=== PATIENT | female | born 1960 | race Caucasian/White ===

== ENCOUNTER 2018-03-04 09:59 | Emergency (ER) | payer MEDICARE, MEDICAID ==
[~2018-03-04 09:59] MED LIST: ACET-1748 PO; ALB17R INH; ALBUTERAL INHALER; AMI25 PO; AZI250 PO; CEP500 PO; CIP500 PO; CLI150 PO; CYC10 PO; DEXL30CA5 PO; DICY10CA62 PO; DILT30TA63 PO; HYD2 PO; LEV500 PO; LOR5 PO; LOR5/325 PO; LOR75 PO; METR-1 PO; MUSCLE RELAXANT; NIC21T TOP; OMEP-153 PO; OMEP-218 PO; OMEP40CA45 PO; ONDA4TAB PO; ONDA4TAB9 PO; OXA600 PO; OXYC-865 PO; OXYC10TA67 PO; OXYC1TAB54 PO; OXYC5TAB65 PO; PAN40 PO; PER PO; POTA10CA61 PO; PRE20 PO; PRO25 PO; PRO25S PR; PROM25S PR; RAN150 PO; RANI-320 PO; ROP1 PO; ROPI1TAB36 PO; SUC1 PO; SUCR1ORA13 PO; SUCR1TAB51 PO; TRA50 PO; VAR1 PO; VER40 PO; [UNRECOGNIZED DRUG - CODE] PO
[2018-03-04] MEDS ORDERED: DIPHTH/TETANUS/ACEL. PERTUSSIS IM ONLY ONE (10:20)
--- NOTE | 2018-03-04 10:20 | ER Report ---
History and Physical Time Seen By MD: 10:05 Hx. of Stated Complaint: PT REPORTS SHE SLIPPED ON HER PAJAMA PANTS AND FELL BACKWARDS, HITTING HEAD ON WOOD KITCHEN TABLE. LAC TO HEAD, DENIES LOC HPI/ROS CHIEF COMPLAINT: Head trauma HISTORY OF PRESENT ILLNESS: 58-year-old comes emergency Department today co mplaining of a mechanical fall striking the back of her head on a countertop resulting in a 2-3 cm laceration no loss of consciousness patient states that she tripped over her pajamas fell backwards striking the back of her head patient states she has a headache no neck pain or discomfort no additional complaints noted REVIEW OF SYSTEMS: Respiratory: No cough, no dyspnea. Cardiovascular: No chest pain, no palpitations. Gastrointestinal: No vomiting, no abdominal pain. Musculoskeletal: No back pain. Remainder of the 14 system rev: Yes Allergies: Coded Allergies: Penicillins (Verified Allergy, Intermediate, HIVES, 03/04/18) codeine (Verified Adverse Reaction, Severe, NAUSEA/VOMITING, 03/04/18) Home Meds Reported Medications Ropinirole Hcl (Requip) 1 Mg Tab, 1 MG PO QHS, 0 Refills 05/17/11 Discontinued Reported Medications Dicyclomine Hcl (Dicyclomine Hcl) 10 Mg Capsule, 20 MG PO QID, 0 Refills 08/26/11 Dexlansoprazole (Dexilant) 30 Mg Gerber., 30 MG PO DAILY, 0 Refills 08/26/11 Tramadol Hcl (Ultram) 50 Mg Tab, 50 MG PO TID PRN, 0 Refills 05/17/11 Discontinued Scripts Oxycodone/Acetaminophen (OXYCODONE/ACETAMINOPHEN 5MG/325 MG) 5 Mg/325 Mg Tab, 1- 2 TAB PO Q6H, #20 TAB Prov:JAYLIN POLO NP 01/26/15 Reviewed Nurses Notes: Yes Old Medical Records Reviewed: Yes Hx Smoking: Yes (1ppd) Smoking Status: Current: Every Day Smoker Exposure to Second Hand Smoke?: No Hx Substance Use Disorder: No Hx Alcohol Use: No Constitutional Vital Sign - Last 24 Hours 03/04/18 10:00 Temp 97.5 Pulse 83 Resp 16 B/P (MAP) 124/69 Pulse Ox 95 O2 Delivery Room Air Physical Exam General Appearance: [The patient is alert, has no immediate need for airway protection and no current signs of toxicity.] [ ] Eyes: Pupils equal and round no injection. Respiratory: Chest is non tender, lungs are clear to auscultation. Cardiac: regular rate and rhythm [ ] Gastrointestinal: Abdomen is soft and non tender, no masses, bowel sounds normal. Musculoskeletal: Neck: Neck is supple and non tender. Extremities have full range of motion and are non tender. Skin: Head scalp examination shows a 4 cm linear clean laceration of the right parietal-occipital region [ ] DIFFERENTIAL DIAGNOSIS: After history and physical exam differential diagnosis was considered for closed head injury laceration intracranial bleed Medical Decision Making ED Course/Re-evaluation ED Course ED clinical course 58 showed female mechanical fall today on her pajaiTwixies for backwards struck her head on a countertop resulting in a 3-3.5 cm linear clean laceration head CT showed no intracranial abnormality wound was closed copiously irrigated with 4 interrupted milad and tolerated well patient be discharged with a primary care follow-up Decision to Disposition Date: Mar 04, 2018 Decision to Disposition Time: 11:19 Depart Departure Latest Vital Signs Vital Signs Date Time Temp Pulse Resp B/P (MAP) Pulse Ox O2 Delivery O2 Flow Rate FiO2 03/04/18 10:00 97.5 83 16 124/69 95 Room Air Impression: Primary Impression: Laceration Condition: Improved Disposition: HOME OR SELF-CARE Referrals: NATALIE FLYNN MD 10 Days GARY ANGLIN MD Mar 04, 2018 10:20
[2018-03-04 11:00] VITALS: BP 107/66
--- NOTE | 2018-03-04 11:05 | RADIOLOGY IMAGING REPORT ---
FACILITY: [facility] - [place] PATIENT NAME: Martine Watt : 1960 MR: [id number] V: [id number] EXAM DATE: ORDERING PHYSICIAN: GARY ANGLIN TECHNOLOGIST: Location: [facility] Patient: Martine Watt : 1960 Visit/Account:[id number] Date of Sevice: 03/04/2018 EXAMINATION: CT Head without intravenous contrast HISTORY: Trauma. TECHNIQUE: Axial images were obtained from the skull base to the vertex without intravenous contrast . Sagittal and coronal reformatted images are also submitted. One of the following dose optimization techniques was utilized in the performance of this exam: Autom ated exposure control; adjustment of the mA and/or kV according to the patient's size; or use of an i terative reconstruction technique. Specific details can be referenced in the facility's radiology C T exam operational policy. COMPARISON: None available. FINDINGS: Brain volume: Normal. Ventricles: Negative. Acute ischemic changes: None. Hemorrhage: None. Masses / edema: None. Knox-white: Negative. White matter: Negative. Vessels: Negative. Extra-axial: Negative. Calvarium / skull base: Negative. Visualized sinuses / orbits: Moderate mucosal thickening in the left maxillary sinus. Mild mucosal t hickening in the ethmoid air cells and left sphenoid sinus. Rightward nasal septal deviation anterior ly. Leftward nasal septal deviation posteriorly. IMPRESSION: No acute intracranial abnormality. Report Dictated By: Bertram Stringer MD at 03/04/2018 10:57 AM Report E-Signed By: Bertram Stringer MD at 03/04/2018 11:01 AM WSN:[id number]
== END 2018-03-04 11:27 | disposition home or self-care (01) ==
LOC: ER 10:29
DX: S01.01XA Laceration without foreign body of scalp, initial encounter (principal); W01.198A Fall on same level from slipping, tripping and stumbling with subsequent striking against other object, initial encounter
CPT/HCPCS: 70450; 90471; 90715; 99284

== ENCOUNTER 2018-03-13 13:30 | Emergency (ER) | payer MEDICARE, MEDICAID ==
[2018-03-13 13:35] VITALS: BP 129/61
--- NOTE | 2018-03-13 13:37 | ER Report ---
History and Physical Time Seen By MD: 13:35 HPI/ROS CHIEF COMPLAINT: Patient here for staple removal. HISTORY OF PRESENT ILLNESS: She is a 58 her old female who presents for staple removal to her scalp. She reports no interval concerns or problems. Allergies: Coded Allergies: Penicillins (Verified Allergy, Intermediate, HIVES, 03/13/18) codeine (Verified Adverse Reaction, Severe, NAUSEA/VOMITING, 03/13/18) Home Meds Reported Medications Ropinirole Hcl (Requip) 1 Mg Tab, 1 MG PO QHS, 0 Refills 05/17/11 Past Medical/Surgical History Noncontributory Hx Smoking: Yes (1ppd) Smoking Status: Current: Every Day Smoker Exposure to Second Hand Smoke?: No Hx Substance Use Disorder: No Hx Alcohol Use: No Constitutional Vital Sign - Last 24 Hours 03/13/18 13:35 Temp 98.4 Pulse 88 Resp 12 B/P (MAP) 129/61 Pulse Ox 94 O2 Delivery Room Air Physical Exam General appearance: Alert no distress. Skin: Scalp wound healing well. Larisa intact Medical Decision Making ED Course/Re-evaluation ED Course Plan will be staple removal. Decision to Disposition Date: Mar 13, 2018 Decision to Disposition Time: 13:42 Depart Departure Latest Vital Signs Vital Signs Date Time Temp Pulse Resp B/P (MAP) Pulse Ox O2 Delivery O2 Flow Rate FiO2 03/13/18 13:35 98.4 88 12 129/61 94 Room Air Impression: Primary Impression: Removal of staple Condition: Improved Disposition: HOME OR SELF-CARE Patient Instructions: Acute Wound Care (ED) MAK LANDA MD Mar 13, 2018 13:37
== END 2018-03-13 13:50 | disposition home or self-care (01) ==
LOC: ER 13:33
DX: S01.01XD Laceration without foreign body of scalp, subsequent encounter (principal)
CPT/HCPCS: 99281

== ENCOUNTER → 2018-05-14 | Outpatient (CLI) | payer MEDICARE ==
[~2018-05-14] MED LIST changes: +ONDA4TAB97 PO; +PANT40TA65 PO
== END ==
LOC: AMB 14:05
PROVIDERS: ATTEND Nurse Practitioner
DX: R10.9 Unspecified abdominal pain (principal); R50.9 Fever, unspecified; R09.02 Hypoxemia
CPT/HCPCS: A0425; A0427

== ENCOUNTER 2018-08-05 18:55 | Emergency (ER) | payer MEDICARE, MEDICAID ==
--- NOTE | 2018-08-05 19:09 | ER Report ---
History and Physical Time Seen By MD: 19:07 Hx. of Stated Complaint: STARTED NOT FEELING WELL 3 WEEKS AGO WITH A COUGH AND SOB. TODAY IT'S GETTING REALLY BAD, CAN'T TAKE A DEEP BREATH, AUDIBLE WEEZING, SHORT SENTANCES HPI/ROS CHIEF COMPLAINT: shortness of breath HISTORY OF PRESENT ILLNESS: This is a 58 year old female. She has not been feeling well for about 3 weeks. Had a sore throat, then a cough. Worsening wheezing. Cant take a deep breath, looses breath with speaking or exertion. Feels hot and cold spells. Not using any medications other than Requip at present. Stopped all meds including inhaled meds. Still smokes. Denies chest pain. Worried about possible pneumonia. Allergies: Coded Allergies: Penicillins (Verified Allergy, Intermediate, HIVES, 08/05/18) codeine (Verified Adverse Reaction, Severe, NAUSEA/VOMITING, 08/05/18) Home Meds Active Scripts Azithromycin (ZITHROMAX) 250 Mg Tablet, 1 TAB PO QDAY, #4 TAB 0 Refills Prov:LUKE CORRIGAN MD 08/05/18 Albuterol Sulfate 0.083% (ALBUTEROL SULFATE 0.083%) 2.5 Mg/3 Ml Vial.neb, 2.5 MG INH Q4H PRN for WHEEZING, #1 BOX 0 Refills Prov:LUKE CORRIGAN MD 08/05/18 Prednisone (PREDNISONE) 20 Mg Tablet, 60 MG PO QDAY for 4 Days, #12 TAB 0 Refills Prov:LUKE CORRIGAN MD 08/05/18 Reported Medications Ropinirole Hcl (Requip) 1 Mg Tab, 1 MG PO QHS, 0 Refills 05/17/11 Discontinued Scripts Ondansetron Hcl (ZOFRAN) 4 Mg Tablet, 4 MG PO Q8H for Nausea, #15 TAB 0 Refills Prov:MAK LANDA MD 05/14/18 Hydrocodone Bit/Acetaminophen (HYDROCODON-ACETAMINOPHEN 5-325) 1 Each Tablet, 1 EACH PO Q4H PRN for PAIN, #12 TAB 0 Refills Prov:MAK LANDA MD 05/14/18 Pantoprazole Sodium (PANTOPRAZOLE SODIUM) 40 Mg Tablet.dr, 40 MG PO QDAY for 30 Days, #30 TAB.SR 0 Refills Prov:MAK LANDA MD 05/14/18 Reviewed Nurses Notes: Yes Hx Smoking: Yes (1ppd) Smoking Status: Current: Every Day Smoker Exposure to Second Hand Smoke?: No Hx Substance Use Disorder: No Hx Alcohol Use: No Constitutional Vital Sign - Last 24 Hours 08/05/18 08/05/18 08/05/18 08/05/18 19:01 19:01 19:10 19:20 Temp 97.6 Pulse 104 93 Resp 28 9 B/P (MAP) 148/85 148/85 (106) Pulse Ox 91 94 90 O2 Delivery Room Air Room Air 08/05/18 08/05/18 08/05/18 08/05/18 19:20 19:25 19:26 19:40 Pulse 88 94 86 86 Resp 22 17 22 14 Pulse Ox 100 95 08/05/18 08/05/18 08/05/18 08/05/18 19:42 19:55 20:00 20:05 Pulse 82 87 B/P (MAP) 139/82 (101) Pulse Ox 95 96 O2 Flow Rate 2.0 08/05/18 08/05/18 08/05/18 08/05/18 20:15 20:15 20:20 20:22 Pulse 91 85 98 Resp 20 20 Pulse Ox 92 100 O2 Delivery Room Air 08/05/18 08/05/18 08/05/18 08/05/18 20:30 20:35 20:50 21:05 Pulse 89 88 91 B/P (MAP) 129/69 (89) Pulse Ox 93 93 92 08/05/18 08/05/18 08/05/18 08/05/18 21:20 21:22 21:25 21:30 Pulse 95 95 93 B/P (MAP) 144/70 (94) Pulse Ox 91 85 84 08/05/18 08/05/18 21:40 21:55 Pulse 86 91 Pulse Ox 95 95 Physical Exam General Appearance: The patient is alert. No acute distress. Eyes: Pupils are equal, round. No pallor, injection or icterus. ENT: Mucous membranes are moist. Normal oral mucosa. Posterior oropharynx has mild erythema, but no exudates or hypertrophy. Normal nasal mucosa. Neck: Supple and non tender. No lymphadenopathy. Respiratory: Lungs with audible wheezing, poor air movement. No rales appreciate d. There are no retractions or accessory muscle use. Cardiovascular: Regular rate and rhythm. No murmurs, gallops or rubs. Normal capillary refill. Gastrointestinal: Abdomen is soft and non tender. Nondistended. Neurological: Alert and oriented x3. No focal neurologic deficits Skin: Warm and dry. DIFFERENTIAL DIAGNOSIS: After history and physical exam, differential diagnosis was considered for shortness of breath including but not limited to pulmonary infectious process, COPD, asthma, pulmonary embolus and congestive heart failure. Medical Decision Making Data Points Result Diagram: 08/05/18190408/05/181904 Laboratory Hematology Test 08/05/18 19:05 08/05/18 19:07 08/05/18 19:37 Red Blood Count 4.23 M/uL (4.17-5.56) Mean Corpuscular Volume 93.3 fL (80.0-96.0) Mean Corpuscular Hemoglobin 32.1 pg (26.0-33.0) Mean Corpuscular Hemoglobin Concent 34.4 g/dL (32.0-36.0) Red Cell Distribution Width 14.7 % (11.5-14.5) Mean Platelet Volume 8.2 fL (7.2-11.1) Neutrophils (%) (Auto) 66.0 % (39.4-72.5) Lymphocytes (%) (Auto) 22.7 % (17.6-49.6) Monocytes (%) (Auto) 8.7 % (4.1-12.4) Eosinophils (%) (Auto) 1.7 % (0.4-6.7) Basophils (%) (Auto) 0.9 % (0.3-1.4) Nucleated RBC Relative Count (auto) 0.1 /100WBC Neutrophils # (Auto) 5.7 K/uL (2.0-7.4) Lymphocytes # (Auto) 2.0 K/uL (1.3-3.6) Monocytes # (Auto) 0.8 K/uL (0.3-1.0) Eosinophils # (Auto) 0.1 K/uL (0.0-0.5) Basophils # (Auto) 0.1 K/uL (0.0-0.1) Nucleated RBC Absolute Count (auto) 0.01 K/uL Sodium Level 137 mmol/L (137-145) Potassium Level 4.0 mmol/L (3.5-5.0) Chloride Level 102 mmol/L (98-107) Carbon Dioxide Level 29 mmol/L (22-31) Blood Urea Nitrogen 15 mg/dl (7-18) Creatinine 0.80 mg/dl (0.52-1.04) Glomerular Filtration Rate Calc > 60.0 Random Glucose 142 mg/dl (75-110) Calcium Level 9.1 mg/dl (8.4-10.2) Total Bilirubin 0.8 mg/dl (0.2-1.3) Aspartate Amino Transf (AST/SGOT) 18 U/L (0-35) Alanine Aminotransferase (ALT/SGPT) 20 U/L (0-56) Alkaline Phosphatase 79 U/L (0-126) Total Protein 6.7 g/dl (6.3-8.2) Albumin 4.0 g/dl (3.5-5.0) Influenza Virus Type A (PCR) Negative (NEGATIVE) Influenza Virus Type B (PCR) Negative (NEGATIVE) Lactate 1.4 mmol/L (0.7-2.1) Chemistry Test 08/05/18 19:05 08/05/18 19:07 08/05/18 19:37 White Blood Count 8.6 k/uL (4.5-11.0) Red Blood Count 4.23 M/uL (4.17-5.56) Hemoglobin 13.6 g/dL (12.0-16.0) Hematocrit 39.4 % (34.0-47.0) Mean Corpuscular Volume 93.3 fL (80.0-96.0) Mean Corpuscular Hemoglobin 32.1 pg (26.0-33.0) Mean Corpuscular Hemoglobin Concent 34.4 g/dL (32.0-36.0) Red Cell Distribution Width 14.7 % (11.5-14.5) Platelet Count 237 K/uL (150-450) Mean Platelet Volume 8.2 fL (7.2-11.1) Neutrophils (%) (Auto) 66.0 % (39.4-72.5) Lymphocytes (%) (Auto) 22.7 % (17.6-49.6) Monocytes (%) (Auto) 8.7 % (4.1-12.4) Eosinophils (%) (Auto) 1.7 % (0.4-6.7) Basophils (%) (Auto) 0.9 % (0.3-1.4) Nucleated RBC Relative Count (auto) 0.1 /100WBC Neutrophils # (Auto) 5.7 K/uL (2.0-7.4) Lymphocytes # (Auto) 2.0 K/uL (1.3-3.6) Monocytes # (Auto) 0.8 K/uL (0.3-1.0) Eosinophils # (Auto) 0.1 K/uL (0.0-0.5) Basophils # (Auto) 0.1 K/uL (0.0-0.1) Nucleated RBC Absolute Count (auto) 0.01 K/uL Glomerular Filtration Rate Calc > 60.0 Calcium Level 9.1 mg/dl (8.4-10.2) Total Bilirubin 0.8 mg/dl (0.2-1.3) Aspartate Amino Transf (AST/SGOT) 18 U/L (0-35) Alanine Aminotransferase (ALT/SGPT) 20 U/L (0-56) Alkaline Phosphatase 79 U/L (0-126) Total Protein 6.7 g/dl (6.3-8.2) Albumin 4.0 g/dl (3.5-5.0) Influenza Virus Type A (PCR) Negative (NEGATIVE) Influenza Virus Type B (PCR) Negative (NEGATIVE) Lactate 1.4 mmol/L (0.7-2.1) EKG/Imaging Imaging Examination: CHEST PA LAT Comparison: 01/31/2014 and earlier. History: short of breath Findings: Cardiac and hilar contour size is normal. Aortic atherosclerosis. New indistinct region of streaky density in the left infrahilar lung. No focal consolidation is otherwise evident 5. No pneumothorax, edema, or effusion. Cholecystectomy clips. Osseous structures are intact. IMPRESSION: New indistinct region of streaky density in the left infrahilar lung. This could be atelectasis although correlation with any evidence of a bronchitis or less likely aspiration is recommended. No definite focal consolidation. Report Dictated By: Neeraj Molina MD at 08/05/2018 7:59 PM ED Course/Re-evaluation Clinical Indication for ER IV: Hydration, IV Access ED Course Patient initially good oxygen, then decreased and needed 2 liters by nasal canula. Oxygen 85% on room air on re-check without oxygen. Labs obtained and unremarkable. DuoNeb given with some improvement. Later given 3 [id number] albuterol treatments. Chest x-ray with linear area on left hilar area, possible atelectasis, but cannot rule out bronchitis or early pneumonia, but no consolidation noted. Solu-medrol 125mg IV also given. Started on Prednisone, Azithromycin, and home oxygen with Albuterol inhaler and nebulizers. Decision to Disposition Date: Aug 05, 2018 Decision to Disposition Time: 21:22 Depart Departure Latest Vital Signs Vital Signs Date Time Temp Pulse Resp B/P (MAP) Pulse Ox O2 Delivery O2 Flow Rate FiO2 08/05/18 21:55 91 95 08/05/18 21:30 144/70 (94) 08/05/18 20:22 20 08/05/18 20:15 Room Air 08/05/18 19:42 2.0 08/05/18 19:01 97.6 Impression: Primary Impression: COPD with exacerbation Additional Impressions: Hypoxia Acute bronchitis Condition: Improved Disposition: HOME OR SELF-CARE New Scripts Azithromycin (ZITHROMAX) 250 Mg Tablet 1 TAB PO QDAY, #4 TAB 0 Refills Prov: LUKE CORRIGAN MD 08/05/18 Albuterol Sulfate 0.083% (ALBUTEROL SULFATE 0.083%) 2.5 Mg/3 Ml Vial.neb 2.5 MG INH Q4H PRN for WHEEZING, #1 BOX 0 Refills Prov: LUKE CORRIGAN MD 08/05/18 Prednisone (PREDNISONE) 20 Mg Tablet 60 MG PO QDAY for 4 Days, #12 TAB 0 Refills Prov: LUKE CORRIGAN MD 08/05/18 Departure Forms: Home Oxygen, Nebulizer RX Durable Medical Equipment- Oxygen: Oxygen Concentrator, Portable Oxygen Gas, Nebulizer Reason for Use/Diagnosis: copd with exacerbation, bronchitis, hypoxia Start Date of the Order: Aug 05, 2018 Dosage or Concentration (if applicable) - LPM: 2 Route of Administration (if applicable): Nasal Cannula Frequency of Use: Continuous Duration Home O2 Required: 6 Duration Units: Weeks Room Air Oxygen Saturation: 85 ER Prescribing Physician's Name: Luke Corrigan NPI Numbers for Local ER MDs: Shekhar [id number] Patient Instructions: Acute Bronchitis (ED), COPD (Chronic Obstructive Pulmonary Disease) (ED) Additional Instructions: Use DuoNeb nebulizer treatments every 4 hours as needed for shortness of breath. Home oxygen at 2 liters by nasal canula continuously. Prednisone 20mg tablets, take 3 tablets once a day for 4 days. Azithromycin 250mg tablets, one daily for 4 days. Make a follow-up with your regular doctor for later this week or early next week for re-evaluation. Problem Qualifiers Additional Impressions: Acute bronchitis Bronchitis organism: unspecified organism Qualified Codes: J20.9 - Acute bronchitis, unspecified LUKE CORRIGAN MD Aug 05, 2018 19:09
[2018-08-05] MEDS ORDERED: ALBUTEROL 2.5 MG/3 ML NEB NEB ONE ×2 (19:10→20:05)
[2018-08-05] MEDS ORDERED: methylPREDNIS SUCC 125 MG/2ML IVP ONE (19:10)
[2018-08-05] MEDS ORDERED: ALBUTEROL/IPRATROPIUM 3 ML NEB NEB ONE ×2 (19:15→21:35)
[2018-08-05 19:41] LABS: PLATELET COUNT, AUTOMATED 237 K/uL (150-450)
--- NOTE | 2018-08-05 20:11 | RADIOLOGY IMAGING REPORT ---
FACILITY: [facility] PATIENT NAME: Martine Watt : 1960 MR: [id number] V: [id number] EXAM DATE: ORDERING PHYSICIAN: JUAN HANSEN TECHNOLOGIST: Location: [facility] Patient: Martine Watt : 1960 Visit/Account:[id number] Date of Sevice: 08/05/2018 Examination: CHEST PA LAT Comparison: 01/31/2014 and earlier. History: short of breath Findings: Cardiac and hilar contour size is normal. Aortic atherosclerosis. New indistinct region of streaky density in the left infrahilar lung. No focal consolidation is other neri evident 5. No pneumothorax, edema, or effusion. Cholecystectomy clips. Osseous structures are intact. IMPRESSION: New indistinct region of streaky density in the left infrahilar lung. This could be atelectasis altho ugh correlation with any evidence of a bronchitis or less likely aspiration is recommended. No defini te focal consolidation. Report Dictated By: Neeraj Molina MD at 08/05/2018 7:59 PM Report E-Signed By: Neeraj Molina MD at 08/05/2018 8:07 PM [id number]
[2018-08-05] MEDS ORDERED: PRED20TA6 PO (21:28)
[2018-08-05] MEDS ORDERED: AZIT-1 PO (21:28)
[2018-08-05] MEDS ORDERED: ALBU2.5V36 INH (21:28)
[2018-08-05 21:30] VITALS: BP 144/70
[2018-08-05] MEDS ORDERED: ALBUTEROL 8 GM INHALER INH ONE (21:35)
[2018-08-05] MEDS ORDERED: predniSONE 20 MG TAB PO ONE (21:35)
[2018-08-05] MEDS ORDERED: AZITHROMYCIN 250 MG TAB PO ONE (21:35)
[2018-08-05] MEDS ORDERED: ONDANSETRON 4 MG ODT TH SL ONE (22:20)
[2018-08-05] MEDS ORDERED: ONDANSETRON 4 MG/2 ML VIAL IVP ONE (22:20)
[2018-08-05] MEDS ORDERED: MECLIZINE HCL 25 MG TAB PO ONE (22:20)
[2018-08-05] MEDS ORDERED: DIAZEPAM 2 MG TAB PO ONE (22:20)
== END 2018-08-05 22:03 | disposition home or self-care (01) ==
LOC: ER 19:15
DX: J44.1 Chronic obstructive pulmonary disease with (acute) exacerbation (principal); R09.02 Hypoxemia; J20.9 Acute bronchitis, unspecified
CPT/HCPCS: 36415; 71046; 83605; 85025; 87040; 87502; 94640; 96374; 99284; J2930; J7512; J7613; J7620; Q0144; 82040; 82247; 82310; 82374; 82435; 82565; 82947; 84075; 84132; 84155; 84295; 84450; 84460; 84520

== ENCOUNTER 2018-08-14 19:07 | Emergency (ER) | payer MEDICARE, MEDICAID ==
[~2018-08-14 19:07] MED LIST changes: +ALBU2.5V36 INH; +AZIT-1 PO; +PRED20TA6 PO
--- NOTE | 2018-08-14 19:25 | ER Report ---
History and Physical Time Seen By MD: 19:23 Hx. of Stated Complaint: feels like she cant breath, chest being squeezed. HPI/ROS CHIEF COMPLAINT: Difficulty breathing, back pain HISTORY OF PRESENT ILLNESS: 58-year-old female with a known history of asthma seen here approximately one week ago, diagnosed with potential pneumonia, placed on Zithromax, prednisone and albuterol. She noted. Back then. She had mild back pain. He did become much worse. It is now spreading around her rib cage to the front. She feels like she is being squeezed like a bear hug. Patient had an extensive workup last week with normal labs, negative d-dimer. Chest x- ray was interpreted as left infrahilar lung streaky infiltrate. REVIEW OF SYSTEMS: Respiratory: As above Cardiovascular: No chest pain, no palpitations. Gastrointestinal: No vomiting, no abdominal pain. Musculoskeletal: As above Allergies: Coded Allergies: Penicillins (Verified Allergy, Intermediate, HIVES, 08/05/18) codeine (Verified Adverse Reaction, Severe, NAUSEA/VOMITING, 08/05/18) Home Meds Active Scripts Methocarbamol (ROBAXIN-750) 750 Mg Tablet, 1 TAB PO TID PRN for muscle spasm relief, #20 Prov:CARLEY SLATER DO 08/14/18 Oxycodone Hcl/Acetaminophen (PERCOCET 5-325 MG TABLET) 1 Each Tablet, 1 EACH PO Q4-6H PRN for PAIN, #12 Prov:CARLEY SLATER DO 08/14/18 Azithromycin (ZITHROMAX) 250 Mg Tablet, 1 TAB PO QDAY, #4 TAB 0 Refills Prov:JUAN HANSEN MD 08/05/18 Albuterol Sulfate 0.083% (ALBUTEROL SULFATE 0.083%) 2.5 Mg/3 Ml Vial.neb, 2.5 MG INH Q4H PRN for WHEEZING, #1 BOX 0 Refills Prov:JUAN HANSEN MD 08/05/18 Prednisone (PREDNISONE) 20 Mg Tablet, 60 MG PO QDAY for 4 Days, #12 TAB 0 Refills Prov:JUAN HANSEN MD 08/05/18 Reported Medications Ropinirole Hcl (Requip) 1 Mg Tab, 1 MG PO QHS, 0 Refills 05/17/11 Reviewed Nurses Notes: Yes Old Medical Records Reviewed: Yes Hx Smoking: Yes (1ppd) Smoking Status: Current: Every Day Smoker Exposure to Second Hand Smoke?: No Hx Substance Use Disorder: No Hx Alcohol Use: No Constitutional Vital Sign - Last 24 Hours 08/14/18 08/14/18 08/14/18 08/14/18 19:11 19:13 19:30 19:37 Temp 97.6 Pulse 119 89 Resp 26 20 B/P (MAP) 154/77 154/77 (102) 140/68 (92) Pulse Ox 90 91 08/14/18 08/14/18 08/14/18 08/14/18 20:00 20:10 20:10 20:30 Pulse 120 Resp 18 B/P (MAP) 125/69 (87) 123/91 (102) Pulse Ox 91 O2 Delivery Room Air 08/14/18 08/14/18 08/14/18 08/14/18 20:37 20:42 21:00 21:00 Pulse 84 89 Resp 17 8 B/P (MAP) 110/66 (81) O2 Flow Rate 2.0 08/14/18 08/14/18 08/14/18 08/14/18 21:30 21:42 22:12 22:17 Pulse 83 82 86 B/P (MAP) 132/92 (105) Pulse Ox 86 94 95 08/14/18 08/14/18 08/14/18 08/14/18 22:47 22:52 23:07 23:16 Pulse 91 84 82 B/P (MAP) 110/64 (79) Pulse Ox 90 96 96 Physical Exam General Appearance: The patient is alert, has no immediate need for airway protection and no current signs of toxicity. Vital signs stable, tachycardia to 120, afebrile, pulse ox 90% on room air HEENT: Pupils equal and round no injection. TMs normal, oropharynx with moderate erythema Respiratory: Chest is non tender, lungs are clear to auscultation. Decreased breath sounds throughout, no appreciable wheezing. Shallow respirations, pain aggravated by deep inspiration, on palpation of the thoracic musculature in the paraspinous region. There is significant discomfort and pain. There is also spasm noted Cardiac: regular rate and rhythm Gastrointestinal: Abdomen is soft and non tender, no masses, bowel sounds normal. Musculoskeletal: Neck: Neck is supple and non tender. No lymphadenopathy, no JVD Extremities have full range of motion and are non tender. No edema, no calf tenderness Skin: No rashes or lesions. DIFFERENTIAL DIAGNOSIS: After history and physical exam differential diagnosis was considered for shortness of breath including but not limited to pulmonary infectious process, COPD, asthma, pulmonary embolus and congestive heart failure. Additionally,back pain including but not limited to muscular pain, herniated disc, spine fracture, intra-abdominal causes and urinary tract infection. Medical Decision Making Data Points Result Diagram: 08/14/18221508/14/182215 Laboratory Hematology Test 08/14/18 21:52 08/14/18 22:16 Urine Color Yellow Urine Clarity Clear Urine pH 6.0 pH (4.8-9.5) Urine Specific [place] 1.026 Urine Protein Negative mg/dL (NEGATIVE) Urine Glucose (UA) Negative mg/dL (NEGATIVE) Urine Ketones Negative mg/dL (NEGATIVE) Urine Blood Negative (NEGATIVE) Urine Nitrite Negative (NEGATIVE) Urine Bilirubin Negative (NEGATIVE) Urine Urobilinogen 1.0 mg/dL (0.2-1.9) Urine Leukocyte Esterase Negative (NEGATIVE) Urine RBC 1 /HPF (0-2/HPF) Urine WBC <1 /HPF (0-5/HPF) Urine Squamous Epithelial Cells Many /LPF (</=FEW) Urine Bacteria Negative /HPF (NONE-FEW) Urine Mucus None /HPF (NONE-FEW) Red Blood Count 4.26 M/uL (4.17-5.56) Mean Corpuscular Volume 93.9 fL (80.0-96.0) Mean Corpuscular Hemoglobin 32.0 pg (26.0-33.0) Mean Corpuscular Hemoglobin Concent 34.1 g/dL (32.0-36.0) Red Cell Distribution Width 14.6 % (11.5-14.5) Mean Platelet Volume 8.3 fL (7.2-11.1) Neutrophils (%) (Auto) 72.6 % (39.4-72.5) Lymphocytes (%) (Auto) 18.9 % (17.6-49.6) Monocytes (%) (Auto) 6.8 % (4.1-12.4) Eosinophils (%) (Auto) 1.2 % (0.4-6.7) Basophils (%) (Auto) 0.5 % (0.3-1.4) Nucleated RBC Relative Count (auto) 0.0 /100WBC Neutrophils # (Auto) 8.2 K/uL (2.0-7.4) Lymphocytes # (Auto) 2.1 K/uL (1.3-3.6) Monocytes # (Auto) 0.8 K/uL (0.3-1.0) Eosinophils # (Auto) 0.1 K/uL (0.0-0.5) Basophils # (Auto) 0.1 K/uL (0.0-0.1) Nucleated RBC Absolute Count (auto) 0.00 K/uL Erythrocyte Sedimentation Rate 6 mm/HOUR (0-30) Sodium Level 134 mmol/L (137-145) Potassium Level 4.0 mmol/L (3.5-5.0) Chloride Level 102 mmol/L (98-107) Carbon Dioxide Level 25 mmol/L (22-31) Blood Urea Nitrogen 9 mg/dl (7-18) Creatinine 0.60 mg/dl (0.52-1.04) Glomerular Filtration Rate Calc > 60.0 Random Glucose 115 mg/dl (75-110) Calcium Level 8.4 mg/dl (8.4-10.2) Total Bilirubin 1.6 mg/dl (0.2-1.3) Aspartate Amino Transf (AST/SGOT) 87 U/L (0-35) Alanine Aminotransferase (ALT/SGPT) 34 U/L (0-56) Alkaline Phosphatase 88 U/L (0-126) Total Protein 6.4 g/dl (6.3-8.2) Albumin 3.8 g/dl (3.5-5.0) Chemistry Test 08/14/18 21:52 08/14/18 22:16 Urine Color Yellow Urine Clarity Clear Urine pH 6.0 pH (4.8-9.5) Urine Specific [place] 1.026 Urine Protein Negative mg/dL (NEGATIVE) Urine Glucose (UA) Negative mg/dL (NEGATIVE) Urine Ketones Negative mg/dL (NEGATIVE) Urine Blood Negative (NEGATIVE) Urine Nitrite Negative (NEGATIVE) Urine Bilirubin Negative (NEGATIVE) Urine Urobilinogen 1.0 mg/dL (0.2-1.9) Urine Leukocyte Esterase Negative (NEGATIVE) Urine RBC 1 /HPF (0-2/HPF) Urine WBC <1 /HPF (0-5/HPF) Urine Squamous Epithelial Cells Many /LPF (</=FEW) Urine Bacteria Negative /HPF (NONE-FEW) Urine Mucus None /HPF (NONE-FEW) White Blood Count 11.3 k/uL (4.5-11.0) Red Blood Count 4.26 M/uL (4.17-5.56) Hemoglobin 13.6 g/dL (12.0-16.0) Hematocrit 40.0 % (34.0-47.0) Mean Corpuscular Volume 93.9 fL (80.0-96.0) Mean Corpuscular Hemoglobin 32.0 pg (26.0-33.0) Mean Corpuscular Hemoglobin Concent 34.1 g/dL (32.0-36.0) Red Cell Distribution Width 14.6 % (11.5-14.5) Platelet Count 227 K/uL (150-450) Mean Platelet Volume 8.3 fL (7.2-11.1) Neutrophils (%) (Auto) 72.6 % (39.4-72.5) Lymphocytes (%) (Auto) 18.9 % (17.6-49.6) Monocytes (%) (Auto) 6.8 % (4.1-12.4) Eosinophils (%) (Auto) 1.2 % (0.4-6.7) Basophils (%) (Auto) 0.5 % (0.3-1.4) Nucleated RBC Relative Count (auto) 0.0 /100WBC Neutrophils # (Auto) 8.2 K/uL (2.0-7.4) Lymphocytes # (Auto) 2.1 K/uL (1.3-3.6) Monocytes # (Auto) 0.8 K/uL (0.3-1.0) Eosinophils # (Auto) 0.1 K/uL (0.0-0.5) Basophils # (Auto) 0.1 K/uL (0.0-0.1) Nucleated RBC Absolute Count (auto) 0.00 K/uL Erythrocyte Sedimentation Rate 6 mm/HOUR (0-30) Glomerular Filtration Rate Calc > 60.0 Calcium Level 8.4 mg/dl (8.4-10.2) Total Bilirubin 1.6 mg/dl (0.2-1.3) Aspartate Amino Transf (AST/SGOT) 87 U/L (0-35) Alanine Aminotransferase (ALT/SGPT) 34 U/L (0-56) Alkaline Phosphatase 88 U/L (0-126) Total Protein 6.4 g/dl (6.3-8.2) Albumin 3.8 g/dl (3.5-5.0) Urinalysis Test 08/14/18 21:52 Urine Color Yellow Urine Clarity Clear Urine pH 6.0 pH (4.8-9.5) Urine Specific [place] 1.026 Urine Protein Negative mg/dL (NEGATIVE) Urine Glucose (UA) Negative mg/dL (NEGATIVE) Urine Ketones Negative mg/dL (NEGATIVE) Urine Blood Negative (NEGATIVE) Urine Nitrite Negative (NEGATIVE) Urine Bilirubin Negative (NEGATIVE) Urine Urobilinogen 1.0 mg/dL (0.2-1.9) Urine Leukocyte Esterase Negative (NEGATIVE) Urine RBC 1 /HPF (0-2/HPF) Urine WBC <1 /HPF (0-5/HPF) Urine Squamous Epithelial Cells Many /LPF (</=FEW) Urine Bacteria Negative /HPF (NONE-FEW) Urine Mucus None /HPF (NONE-FEW) EKG/Imaging EKG Interpretation 12 lead EK Rhythm: normal sinus rhythm with short VA interval [place]: normal QRS: normal ST segments: normal, no evidence of ischemia or dysrhythmia, comparison to previous EKG dated 05/14/18, no significant change noted Imaging X-ray: Two-view chest x-ray was obtained. I viewed the images myself on the PACS system. My interpretation of the images is: No infiltrate, no effusion, normal mediastinum. Michele, comparison to previous film 08/05/18, no significant change The radiologist interpretation had no clinically significant variation from this interpretation. Results: CT scan of the CTA pulmonary angiogram was obtained. The results of the study are CT ANGIOGRAM OF THE CHEST WITH INTRAVENOUS CONTRAST, PE PROTOCOL DATE OF EXAM: 08/14/2018 20:29 COMPARISON: . INDICATION: Severe back pain and chest pain. History of T9 compression fracture. TECHNIQUE: Contrast enhanced chest CT performed during the injection of 75 ml of Isovue-370. Three-dimensional (MIP) reconstructions were performed. FINDINGS: Negative for pulmonary arterial embolus. Right middle lobe opacities likely atelectasis. There is mild dependent atelectasis in the lower lobes. Thyroid: Incompletely imaged thyroid. Thoracic inlet: No thoracic inlet adenopathy. Heart and great vessels: Heart size is normal. Moderate aortic arch atherosclerosis. Mediastinum and yung: No mediastinal or hilar adenopathy. Lungs and pleura: As above. Breast and axilla: Breast tissue is unremarkable by CT. Bones and soft tissues: No acute fracture. Bone density appears diffusely decreased in the thoracic spine. Upper abdomen: Unremarkable. Surgically absent gallbladder. IMPRESSION: 1. Negative for pulmonary arterial embolus. 2. Extensive right middle lobe atelectasis with near complete collapse. The study was read by the radiologist. I viewed the images myself on the PACS system. ED Course/Re-evaluation Clinical Indication for ER IV: Hydration, IV Access ED Course Patient was admitted to an examination room. H&P was done. The differential diagnoses was considered. Patient with chest tightness and difficulty breathing. Diagnostic studies were performed. Her EKG, troponin, d-dimer are negative. Her chest x-ray is unremarkable. The patient's having some chest wall pain and back spasm. She'll be placed on a muscle relaxant, Robaxin, given Lortab for additional pain relief. She is advised to continue ibuprofen 600 mg 3 times daily. She is advised to follow-up with primary care if unimproved in 3-5 days. Decision to Disposition Date: Aug 14, 2018 Decision to Disposition Time: 22:59 Depart Departure Latest Vital Signs Vital Signs Date Time Temp Pulse Resp B/P (MAP) Pulse Ox O2 Delivery O2 Flow Rate FiO2 08/14/18 23:16 110/64 (79) 08/14/18 23:07 82 96 08/14/18 21:00 2.0 08/14/18 20:42 8 08/14/18 20:10 Room Air 08/14/18 19:11 97.6 Impression: Primary Impression: Chest wall pain Additional Impressions: Back pain COPD (chronic obstructive pulmonary disease) Atelectasis of right lung Condition: Improved Disposition: HOME OR SELF-CARE New Scripts Methocarbamol (ROBAXIN-750) 750 Mg Tablet 1 TAB PO TID PRN for muscle spasm relief, #20 Prov: CARLEY SLATER DO 08/14/18 Oxycodone Hcl/Acetaminophen (PERCOCET 5-325 MG TABLET) 1 Each Tablet 1 EACH PO Q4-6H PRN for PAIN, #12 Prov: CARLEY SLATER DO 08/14/18 Patient Instructions: Atelectasis (ED), Back Pain (ED) Additional Instructions: Take ibuprofen 200 mg 3 tablets 3 times a day with food for 3-5 days Apply heating pad to your back area that's affected Use incentive spirometry every 2 hours while awake Follow-up with your primary care physician if unimproved on Friday or Friday next week Problem Qualifiers Additional Impressions: Back pain Back pain location: thoracic back pain Chronicity: acute Back pain laterality: left Qualified Codes: M54.6 - Pain in thoracic spine COPD (chronic obstructive pulmonary disease) COPD type: unspecified COPD Qualified Codes: J44.9 - Chronic obstructive pulmonary disease, unspecified CARLEY SLATER DO Aug 14, 2018 19:25
[2018-08-14] MEDS ORDERED: ALBUTEROL/IPRATROPIUM 3 ML NEB NEB ONE (19:30)
[2018-08-14] MEDS ORDERED: ONDANSETRON 4 MG/2 ML VIAL IVP ONE (20:30)
[2018-08-14] MEDS ORDERED: NS(*) 0.9% 1000 ML BAG 1,000 ML IV ONE (20:30)
[2018-08-14] MEDS ORDERED: HYDROMORPHONE HCL 1 MG/ML SYRINGE IVP ONE (20:30)
--- NOTE | 2018-08-14 20:36 | RADIOLOGY IMAGING REPORT ---
FACILITY: [facility] - [place] PATIENT NAME: Martine Watt : 1960 MR: [id number] V: [id number] EXAM DATE: ORDERING PHYSICIAN: CARLEY SLATER TECHNOLOGIST: Location: [facility] [place] Patient: Martine Watt : 1960 Visit/Account:[id number] Date of Sevice: 08/14/2018 EXAMINATION: Chest radiographs 2 views HISTORY: Dyspnea. Chest tightness. Back pain. COMPARISON: 08/05/2018. FINDINGS: PA and lateral views of the chest are submitted. Lines/tubes: Surgical clips in the right upper quadrant of the abdomen. Lungs/pleura: There is anterior lung base opacity which is seen on the lateral view which may repres ent mild atelectasis or an infiltrate. No pleural effusion. No evidence of pneumothorax. Pulmonary vascularity is within normal limits. Heart: Normal heart size. Mediastinum: Calcified plaque at the aortic arch. Bony structures/body wall: Negative. IMPRESSION: Small region of opacity at one or both of the anterior lung bases seen on the lateral view which may represent mild atelectasis or an infiltrate. Report Dictated By: Elijah Belle MD at 08/14/2018 8:27 PM Report E-Signed By: Elijah Belle MD at 08/14/2018 8:33 PM WSN:[email or web address]
--- NOTE | 2018-08-14 20:41 | EKG ---
FACILITY: [facility] - [place] PATIENT NAME: DANA MONTEIRO : [id number] MR: [id number] V: [id number] EXAM DATE: ORDERING PHYSICIAN: CARLEY SLATER TECHNOLOGIST: DIANNA Test Reason : PAIN Blood Pressure : / mmHG Vent. Rate : 089 BPM Atrial Rate : 089 BPM P-R Int : 088 ms QRS Dur : 080 ms QT Int : 362 ms P-R-T Axes : 071 067 059 degrees QTc Int : 440 ms Sinus rhythm with short IN Otherwise normal ECG When compared with ECG of 14-MAY-2018 14:35, IN interval has decreased Confirmed by TREY PIERS ([id number]) on 08/14/2018 9:01:10 PM Referred By: NOHEMY Confirmed By:TREY PIRES
[2018-08-14] MEDS ORDERED: NS(*) 0.9% 50 ML BAG 50 ML ONE (21:12)
[2018-08-14] MEDS ORDERED: IOPAMIDOL 76% 150 ML INFUS BTL 150 ML ONE (21:12)
--- NOTE | 2018-08-14 22:07 | RADIOLOGY IMAGING REPORT ---
FACILITY: [facility] - [place] PATIENT NAME: Martine Watt : 1960 MR: [id number] V: [id number] EXAM DATE: ORDERING PHYSICIAN: CARLEY SLATER TECHNOLOGIST: Location: [facility] Patient: Martine Watt : 1960 Visit/Account:[id number] Date of Sevice: 08/14/2018 CT ANGIOGRAM OF THE CHEST WITH INTRAVENOUS CONTRAST, PE PROTOCOL DATE OF EXAM: 08/14/2018 20:29 COMPARISON: . INDICATION: Severe back pain and chest pain. History of T9 compression fracture. TECHNIQUE: Contrast enhanced chest CT performed during the injection of 75 ml of Isovue-370. Three-d imensional (MIP) reconstructions were performed. FINDINGS: Negative for pulmonary arterial embolus. Right middle lobe opacities likely atelectasis. There is mil d dependent atelectasis in the lower lobes. Thyroid: Incompletely imaged thyroid. Thoracic inlet: No thoracic inlet adenopathy. Heart and great vessels: Heart size is normal. Moderate aortic arch atherosclerosis. Mediastinum and yung: No mediastinal or hilar adenopathy. Lungs and pleura: As above. Breast and axilla: Breast tissue is unremarkable by CT. Bones and soft tissues: No acute fracture. Bone density appears diffusely decreased in the thoracic spine. Upper abdomen: Unremarkable. Surgically absent gallbladder. IMPRESSION: 1. Negative for pulmonary arterial embolus. 2. Extensive right middle lobe atelectasis with near complete collapse. One of the following dose optimization techniques was utilized in the performance of this exam: Autom ated exposure control; adjustment of the mA and/or kV according to the patient's size; or use of an i terative reconstruction technique. Specific details can be referenced in the facility's radiology C T exam operational policy. Report Dictated By: Nancy Beck MD at 08/14/2018 9:45 PM Report E-Signed By: Nancy Beck MD at 08/14/2018 10:04 PM WSN:[id number]
[2018-08-14] MEDS ORDERED: KETOROLAC 30 MG/ML VIAL IVP ONE (22:15)
[2018-08-14 22:34] LABS: PLATELET COUNT, AUTOMATED 227 K/uL (150-450)
[2018-08-14] MEDS ORDERED: METH-543 PO (23:01)
[2018-08-14] MEDS ORDERED: OXYC-865 PO (23:01)
[2018-08-14] MEDS ORDERED: oxyCODONE/ACETAMIN 5/325MG TH 2 TAB/BOTTLE PO ONE (23:05)
[2018-08-14 23:16] VITALS: BP 110/64
== END 2018-08-14 23:41 | disposition home or self-care (01) ==
LOC: ER 19:26
DX: R07.89 Other chest pain (principal); M54.6 Pain in thoracic spine; J44.9 Chronic obstructive pulmonary disease, unspecified; J98.11 Atelectasis
CPT/HCPCS: 36415; 71046; 71275; 81001; 85025; 85651; 93005; 94640; 96361; 96374; 96375; 99284; A9270; J1170; J1885; J2405; J7030; J7050; J7620; Q9967; 82040; 82247; 82310; 82374; 82435; 82565; 82947; 84075; 84132; 84155; 84295; 84450; 84460; 84520

== ENCOUNTER 2018-08-19 02:42 | Emergency (ER) | payer MEDICAID, MEDICARE ==
[~2018-08-19 02:42] MED LIST changes: +METH-543 PO
--- NOTE | 2018-08-19 02:53 | ER Report ---
History and Physical Time Seen By : 02:53 Hx. of Stated Complaint: can't breathe, progressively getting worse throughout the day. using o2 at home. doesn't have a portable yet and came in without o2 HPI/ROS CHIEF COMPLAINT: Difficulty breathing. HISTORY OF PRESENT ILLNESS: This is a 58year old female. I saw her a few weeks ago for trouble breathing, and gave her a Prednisone burst and albuterol nebulizer vials to use at home. She was also started on Azithromycin for some possible early pneumonia based on some streakiness in her chest x-ray. Started her on oxygen for hypoxia. She has a home concentrator, but says that insurance does not cover portable oxygen for her. She arrives without oxygen on, but saturation is 89%. She said that the steroid may have helped a little, but still trouble. Has been using the nebulizer once or twice a day. Has some other inhalers at home, but does not know the names of them. She was seen last week for feeling pain with breathing, saying it was a tightness. CT scan done and showed some atelectasis. Given some pain medicine and muscle relaxer, as well as an incentive spirometer. She says these have not helped and the pain medicine only makes her sick. Trouble breahing is a tight feeling and continues coughing. Has not yet followed up with primary care, says she has an appointment tomorrow. No nausea or vomiting. No back pain. She has had a little bit of increased sw elling in both ankles recently. Allergies: Coded Allergies: Penicillins (Verified Allergy, Intermediate, HIVES, 08/19/18) codeine (Verified Adverse Reaction, Severe, NAUSEA/VOMITING, 08/19/18) Home Meds Active Scripts Albuterol Sulfate 0.083% (ALBUTEROL SULFATE 0.083%) 2.5 Mg/3 Ml Vial.neb, 2.5 MG INH Q6H PRN for SHORTNESS OF BREATH, #1 BOX 0 Refills Prov:JUAN HANSEN MD 08/19/18 Ipratropium/Albuterol Sulfate (IPRAT-ALBUT 0.5-3(2.5) MG/3 ML) 3 Ml Ampul.neb, 3 ML IH Q6H, #1 BOX 0 Refills Prov:JUAN HANSEN MD 08/19/18 Prednisone (PREDNISONE) 20 Mg Tablet, 20 MG PO DIRECTED, #26 TAB 0 Refills Take 3 tablets once a day for 4 days, then take 2 tablets once a day for 4 days, then take 1 tablet once a day for 4 days, then take 1/2 tablet once a day for 4 days, then stop. Prov:JUAN HANSEN MD 08/19/18 Methocarbamol (ROBAXIN-750) 750 Mg Tablet, 1 TAB PO TID PRN for muscle spasm relief, #20 Prov:NOHEMYCARLEY Rodriguez DO 08/14/18 Oxycodone Hcl/Acetaminophen (PERCOCET 5-325 MG TABLET) 1 Each Tablet, 1 EACH PO Q4-6H PRN for PAIN, #12 Prov:CARLEY PUENTE DO 08/14/18 Azithromycin (ZITHROMAX) 250 Mg Tablet, 1 TAB PO QDAY, #4 TAB 0 Refills Prov:JUAN HANSEN MD 08/05/18 Albuterol Sulfate 0.083% (ALBUTEROL SULFATE 0.083%) 2.5 Mg/3 Ml Vial.neb, 2.5 MG INH Q4H PRN for WHEEZING, #1 BOX 0 Refills Prov:JUAN HANSEN MD 08/05/18 Prednisone (PREDNISONE) 20 Mg Tablet, 60 MG PO QDAY for 4 Days, #12 TAB 0 Refills Prov:JUAN HANSEN MD 08/05/18 Reported Medications Ropinirole Hcl (Requip) 1 Mg Tab, 1 MG PO QHS, 0 Refills 05/17/11 Reviewed Nurses Notes: Yes Hx Smoking: Yes (1ppd) Smoking Status: Current: Every Day Smoker Exposure to Second Hand Smoke?: No Hx Substance Use Disorder: No Hx Alcohol Use: No Constitutional Vital Sign - Last 24 Hours 08/19/18 08/19/18 08/19/18 08/19/18 02:42 02:46 02:47 02:57 Temp 97.9 Pulse ??? 94 86 Resp 26 20 B/P (MAP) 144/85 144/85 (104) Pulse Ox 89 93 O2 Delivery Room Air 08/19/18 08/19/18 08/19/18 08/19/18 03:12 03:20 03:20 03:26 Pulse 88 80 80 Resp 16 20 22 Pulse Ox 92 90 O2 Delivery Room Air 08/19/18 08/19/18 08/19/18 08/19/18 03:27 03:42 03:57 04:00 Pulse 78 ??? 80 Resp 18 29 B/P (MAP) 109/76 (87) Pulse Ox 98 08/19/18 08/19/18 08/19/18 08/19/18 04:12 04:27 04:30 04:35 Pulse 81 88 82 Resp 23 16 23 B/P (MAP) 114/63 (80) Pulse Ox 87 89 89 08/19/18 08/19/18 08/19/18 04:50 05:00 05:05 Pulse 84 92 Resp 12 19 B/P (MAP) 133/75 (94) Pulse Ox 89 90 Physical Exam General Appearance: The patient is alert. No acute distress. Eyes: Pupils are equal, round. No pallor, injection or icterus. ENT: Mucous membranes are moist. Normal oral mucosa. Posterior oropharynx is normal. Neck: Supple and non tender. Respiratory: Lungs diminished throughout, with expiratory wheezing, no rales or rhonchi noted. There are no retractions or accessory muscle use. Cardiovascular: Regular rate and rhythm. No murmurs, gallops or rubs. Normal cap illary refill. Has trace edema bilateral ankles. Gastrointestinal: Abdomen is soft and non tender. Nondistended. Normal active bowel sounds. Neurological: Alert and oriented x3. No focal neurologic deficits Skin: Warm and dry. No rashes. Has multiple track trevino (known meth use). Musculoskeletal: Extremities are nontender. Has discomfort difusely in back and chest wall. DIFFERENTIAL DIAGNOSIS: After history and physical exam, differential diagnosis was considered for patient with ongoing problems with chest tightness, trouble breathing, although it seems like related to her COPD, and appears to be not using her breathing medicines as much as she could. She does note that when she does use the albuterol nebulizer does feel like it opens her breathing better. Medical Decision Making Data Points Result Diagram: 08/19/18 0412 08/19/18 0412 Laboratory Hematology Test 08/19/18 04:12 Red Blood Count 4.39 M/uL (4.17-5.56) Mean Corpuscular Volume 93.7 fL (80.0-96.0) Mean Corpuscular Hemoglobin 31.8 pg (26.0-33.0) Mean Corpuscular Hemoglobin Concent 33.9 g/dL (32.0-36.0) Red Cell Distribution Width 14.7 % (11.5-14.5) Mean Platelet Volume 8.3 fL (7.2-11.1) Neutrophils (%) (Auto) 60.9 % (39.4-72.5) Lymphocytes (%) (Auto) 29.1 % (17.6-49.6) Monocytes (%) (Auto) 7.9 % (4.1-12.4) Eosinophils (%) (Auto) 1.6 % (0.4-6.7) Basophils (%) (Auto) 0.5 % (0.3-1.4) Nucleated RBC Relative Count (auto) 0.1 /100WBC Neutrophils # (Auto) 5.5 K/uL (2.0-7.4) Lymphocytes # (Auto) 2.6 K/uL (1.3-3.6) Monocytes # (Auto) 0.7 K/uL (0.3-1.0) Eosinophils # (Auto) 0.1 K/uL (0.0-0.5) Basophils # (Auto) 0.0 K/uL (0.0-0.1) Nucleated RBC Absolute Count (auto) 0.01 K/uL Sodium Level 135 mmol/L (137-145) Potassium Level 3.8 mmol/L (3.5-5.0) Chloride Level 100 mmol/L (98-107) Carbon Dioxide Level 29 mmol/L (22-31) Blood Urea Nitrogen 9 mg/dl (7-18) Creatinine 0.60 mg/dl (0.52-1.04) Glomerular Filtration Rate Calc > 60.0 Random Glucose 134 mg/dl (75-110) Calcium Level 9.1 mg/dl (8.4-10.2) Total Bilirubin 0.7 mg/dl (0.2-1.3) Aspartate Amino Transf (AST/SGOT) 20 U/L (0-35) Alanine Aminotransferase (ALT/SGPT) 31 U/L (0-56) Alkaline Phosphatase 93 U/L (0-126) Total Protein 6.6 g/dl (6.3-8.2) Albumin 4.0 g/dl (3.5-5.0) Chemistry Test 08/19/18 04:12 White Blood Count 9.0 k/uL (4.5-11.0) Red Blood Count 4.39 M/uL (4.17-5.56) Hemoglobin 13.9 g/dL (12.0-16.0) Hematocrit 41.1 % (34.0-47.0) Mean Corpuscular Volume 93.7 fL (80.0-96.0) Mean Corpuscular Hemoglobin 31.8 pg (26.0-33.0) Mean Corpuscular Hemoglobin Concent 33.9 g/dL (32.0-36.0) Red Cell Distribution Width 14.7 % (11.5-14.5) Platelet Count 249 K/uL (150-450) Mean Platelet Volume 8.3 fL (7.2-11.1) Neutrophils (%) (Auto) 60.9 % (39.4-72.5) Lymphocytes (%) (Auto) 29.1 % (17.6-49.6) Monocytes (%) (Auto) 7.9 % (4.1-12.4) Eosinophils (%) (Auto) 1.6 % (0.4-6.7) Basophils (%) (Auto) 0.5 % (0.3-1.4) Nucleated RBC Relative Count (auto) 0.1 /100WBC Neutrophils # (Auto) 5.5 K/uL (2.0-7.4) Lymphocytes # (Auto) 2.6 K/uL (1.3-3.6) Monocytes # (Auto) 0.7 K/uL (0.3-1.0) Eosinophils # (Auto) 0.1 K/uL (0.0-0.5) Basophils # (Auto) 0.0 K/uL (0.0-0.1) Nucleated RBC Absolute Count (auto) 0.01 K/uL Glomerular Filtration Rate Calc > 60.0 Calcium Level 9.1 mg/dl (8.4-10.2) Total Bilirubin 0.7 mg/dl (0.2-1.3) Aspartate Amino Transf (AST/SGOT) 20 U/L (0-35) Alanine Aminotransferase (ALT/SGPT) 31 U/L (0-56) Alkaline Phosphatase 93 U/L (0-126) Total Protein 6.6 g/dl (6.3-8.2) Albumin 4.0 g/dl (3.5-5.0) EKG/Imaging Imaging TWO VIEW CHEST 08/19/2018 3:17 AM. INDICATION: trouble breathing COMPARISON: CT PE and chest radiographs 08/14/2018. FINDINGS: Lungs are overall well-expanded, though there is likely persistent right middle lobe atelectasis, better demonstrated on the lateral image. Lungs are otherwise clear and not significantly changed. No pneumothorax or pleural effusion. Heart size is normal. Cholecystectomy clips. IMPRESSION: Probable persistent right middle lobe atelectasis similar in appearance to 08/14/2018. Otherwise nonacute. Report Dictated By: Sherwin Fischer MD at 08/19/2018 3:58 AM ED Course/Re-evaluation Clinical Indication for ER IV: IV Access ED Course Gave a DuoNeb nebulizer, ordered Solu-Medrol. Repeat chest x-ray done. Still seeing right middle lobe atelectasis. She did have some improvement with the DuoNeb tonight. Reviewed the last few visits. Puzzling why the atelectasis in the right middle lobe is persistent, raising the possibility of something like mucous plugging, aspiration of something blocking the airways, or mass that we would not see on the imaging. Could resolve with more aggressive breathing treatments and steroid course, but suspect she needs to see pulmonology. Her oxygen levels have remained 88-91% without oxygen. Will have her do DuoNeb treatments every 6hours. She can use Albuterol nebulizers in between these. Will do a longer Prednisone taper. Would not recommend pain medicines given addiction potential and the fact that the small amount she tried did not help and only made her feel sick. Recommend Pulmonology follow-up and she is going to talk to her primary care doctor about this today. Decision to Disposition Date: August 19, 2018 Decision to Disposition Time: 04:56 Depart Departure Latest Vital Signs Vital Signs Date Time Temp Pulse Resp B/P (MAP) Pulse Ox O2 Delivery O2 Flow Rate FiO2 08/19/18 05:05 92 19 90 08/19/18 05:00 133/75 (94) 08/19/18 03:20 Room Air 08/19/18 02:46 97.9 Impression: Primary Impression: Atelectasis of right lung Additional Impression: COPD (chronic obstructive pulmonary disease) Condition: Condition Unchanged Disposition: HOME OR SELF-CARE New Scripts Albuterol Sulfate 0.083% (ALBUTEROL SULFATE 0.083%) 2.5 Mg/3 Ml Vial.neb 2.5 MG INH Q6H PRN for SHORTNESS OF BREATH, #1 BOX 0 Refills Prov: JUAN HANSEN MD 08/19/18 Ipratropium/Albuterol Sulfate (IPRAT-ALBUT 0.5-3(2.5) MG/3 ML) 3 Ml Ampul.neb 3 ML IH Q6H, #1 BOX 0 Refills Prov: JUAN HANSEN MD 08/19/18 Prednisone (PREDNISONE) 20 Mg Tablet 20 MG PO DIRECTED, #26 TAB 0 Refills Take 3 tablets once a day for 4 days, then take 2 tablets once a day for 4 days, then take 1 tablet once a day for 4 days, then take 1/2 tablet once a day for 4 days, then stop. Prov: JUAN HANSEN MD 08/19/18 Patient Instructions: COPD (Chronic Obstructive Pulmonary Disease) (ED) Additional Instructions: Keep using the incentive spirometer provided by Dr. Puente last visit. Start using DuoNeb nebulizer treatments every 6 hours while awake. In between these treatments you can use the Albuterol nebulizers. We will start you on a longer Prednisone taper. Talk to your primary care doctor today about getting set up to see a [employer] Programmer for further evaluation of this persistent right middle lobe atelectasis. Problem Qualifiers Additional Impression: COPD (chronic obstructive pulmonary disease) COPD type: unspecified COPD Qualified Codes: J44.9 - Chronic obstructive pulmonary disease, unspecified JUAN HANSEN MD August 19, 2018 02:53
[2018-08-19] MEDS ORDERED: methylPREDNIS SUCC 125 MG/2ML IVP ONE (03:20)
[2018-08-19] MEDS ORDERED: ALBUTEROL/IPRATROPIUM 3 ML NEB NEB ONE ×2 (03:20→04:55)
--- NOTE | 2018-08-19 04:07 | RADIOLOGY IMAGING REPORT ---
FACILITY: [facility] PATIENT NAME: Martine Watt : 1960 MR: [id number] V: [id number] EXAM DATE: ORDERING PHYSICIAN: JUAN HANSEN TECHNOLOGIST: Location: [facility] Patient: Martine Watt : 1960 Visit/Account:[id number] Date of Sevice: 08/19/2018 TWO VIEW CHEST 08/19/2018 3:17 AM. INDICATION: trouble breathing COMPARISON: CT PE and chest radiographs 08/14/2018. FINDINGS: Lungs are overall well-expanded, though there is likely persistent right middle lobe atelec tasis, better demonstrated on the lateral image. Lungs are otherwise clear and not significantly juan josé nged. No pneumothorax or pleural effusion. Heart size is normal. Cholecystectomy clips. IMPRESSION: Probable persistent right middle lobe atelectasis similar in appearance to 08/14/2018. Ot herwise nonacute. Report Dictated By: Sherwin Fischer MD at 08/19/2018 3:58 AM Report E-Signed By: Sherwin Fischer MD at 08/19/2018 4:03 AM WSN:[id number]
[2018-08-19 04:18] LABS: PLATELET COUNT, AUTOMATED 249 K/uL (150-450)
[2018-08-19 05:00] VITALS: BP 133/75
[2018-08-19] MEDS ORDERED: PRED20TA6 PO (05:05)
[2018-08-19] MEDS ORDERED: ALBU2.5V36 INH (05:05)
[2018-08-19] MEDS ORDERED: IPRA3AMP10 IH (05:05)
== END 2018-08-19 05:10 | disposition home or self-care (01) ==
LOC: ER 03:02
DX: J98.11 Atelectasis (principal); J44.9 Chronic obstructive pulmonary disease, unspecified
CPT/HCPCS: 71046; 85025; 94640; 96374; 99283; J2930; J7620; 82040; 82247; 82310; 82374; 82435; 82565; 82947; 84075; 84132; 84155; 84295; 84450; 84460; 84520

== ENCOUNTER 2018-11-30 15:06 | Emergency (ER) | payer MEDICARE, MEDICAID ==
[~2018-11-30 15:06] MED LIST changes: +IPRA3AMP10 IH
--- NOTE | 2018-11-30 15:10 | ER Report ---
History and Physical Time Seen By MD: 15:06 HPI/ROS 58-year-old female with history of COPD, current smoker who presents with left leg redness and pain. Patient states that she has a mild swelling in bilateral lower extremities for at least 6 months. She states that over the last several days her left lower extremity has become slightly more swollen than her right and she noticed some increased redness and pain that started over the dorsum of her left foot and has since spread slightly up her lower extremity. She denies any systemic symptoms including any fevers or chills. Denies any history of blood clots. No known history of renal failure or heart failure. She denies any heart failure symptoms including dyspnea on exertion, orthopnea. A complete review of systems was performed and is otherwise negative except as noted above in the history of present illness. Remainder of the 14 system rev: Yes Allergies: Coded Allergies: Penicillins (Verified Allergy, Intermediate, HIVES, 08/19/18) codeine (Verified Adverse Reaction, Severe, NAUSEA/VOMITING, 08/19/18) Home Meds Active Scripts Cephalexin 500 Mg Tab (KEFLEX 500 MG TAB) 500 Mg Tablet, 500 MG PO Q6H for 7 Days, #28 TAB 0 Refills Prov:JAYLIN LOUISE MD 11/30/18 Albuterol Sulfate 0.083% (ALBUTEROL SULFATE 0.083%) 2.5 Mg/3 Ml Vial.neb, 2.5 MG INH Q6H PRN for SHORTNESS OF BREATH, #1 BOX 0 Refills Prov:JUAN HANSEN MD 08/19/18 Ipratropium/Albuterol Sulfate (IPRAT-ALBUT 0.5-3(2.5) MG/3 ML) 3 Ml Ampul.neb, 3 ML IH Q6H, #1 BOX 0 Refills Prov:JUAN HANSEN MD 08/19/18 Prednisone (PREDNISONE) 20 Mg Tablet, 20 MG PO DIRECTED, #26 TAB 0 Refills Take 3 tablets once a day for 4 days, then take 2 tablets once a day for 4 days, then take 1 tablet once a day for 4 days, then take 1/2 tablet once a day for 4 days, then stop. Prov:JUAN HANSEN MD 08/19/18 Methocarbamol (ROBAXIN-750) 750 Mg Tablet, 1 TAB PO TID PRN for muscle spasm relief, #20 Prov:CARLEY SLATER DO 08/14/18 Oxycodone Hcl/Acetaminophen (PERCOCET 5-325 MG TABLET) 1 Each Tablet, 1 EACH PO Q4-6H PRN for PAIN, #12 Prov:CARLEY SLATER DO 08/14/18 Azithromycin (ZITHROMAX) 250 Mg Tablet, 1 TAB PO QDAY, #4 TAB 0 Refills Prov:JUAN HANSEN MD 08/05/18 Albuterol Sulfate 0.083% (ALBUTEROL SULFATE 0.083%) 2.5 Mg/3 Ml Vial.neb, 2.5 MG INH Q4H PRN for WHEEZING, #1 BOX 0 Refills Prov:JUAN HANSEN MD 08/05/18 Prednisone (PREDNISONE) 20 Mg Tablet, 60 MG PO QDAY for 4 Days, #12 TAB 0 Refills Prov:JUAN HANSEN MD 08/05/18 Reported Medications Ropinirole Hcl (Requip) 1 Mg Tab, 1 MG PO QHS, 0 Refills 05/17/11 Reviewed Nurses Notes: Yes Old Medical Records Reviewed: Yes Hx Smoking: Yes (1ppd) Smoking Status: Current: Every Day Smoker Exposure to Second Hand Smoke?: No Hx Substance Use Disorder: No Hx Alcohol Use: No Constitutional Vital Sign - Last 24 Hours 11/30/18 11/30/18 11/30/18 11/30/18 15:06 15:10 15:31 15:36 Temp 98.3 Pulse 106 108 94 Resp 20 B/P (MAP) 152/82 122/62 (82) Pulse Ox 90 91 91 O2 Delivery Room Air 11/30/18 11/30/18 16:00 16:06 Pulse 87 B/P (MAP) 127/75 (92) Pulse Ox 91 Physical Exam General Appearance: No acute distress.[ ] Eyes: Pupils equal and round no pallor or injection. ENT, Mouth: Mucous membranes are moist. Respiratory: There are no retractions, lungs are clear to auscultation. Cardiovascular: Regular rate and rhythm. Gastrointestinal: Abdomen is soft and non tender, no masses, bowel sounds indigo l. Neurological: No focal deficits Skin: Increased erythema and warmth over the left dorsum of the foot extending to the mid kelly. There does appear to be a plantar wart on the plantar surface of her left foot. Musculoskeletal: 2+ pitting edema in the left lower extremity, 1+ pitting edema in the right lower extremity up to the knees bilaterally Medical Decision Making Data Points Result Diagram: 11/30/18 1607 Laboratory Chemistry Test 11/30/18 16:07 Sodium Level 138 mmol/L (137-145) Potassium Level 3.7 mmol/L (3.5-5.0) Chloride Level 102 mmol/L (98-107) Carbon Dioxide Level 28 mmol/L (22-31) Blood Urea Nitrogen 11 mg/dl (7-18) Creatinine 0.80 mg/dl (0.52-1.04) Glomerular Filtration Rate Calc > 60.0 Random Glucose 155 mg/dl (75-110) Calcium Level 8.7 mg/dl (8.4-10.2) Total Bilirubin 1.1 mg/dl (0.2-1.3) Aspartate Amino Transf (AST/SGOT) 23 U/L (0-35) Alanine Aminotransferase (ALT/SGPT) 31 U/L (0-56) Alkaline Phosphatase 86 U/L (0-126) B-Type Natriuretic Peptide 86 pg/ml (0-100) Total Protein 6.8 g/dl (6.3-8.2) Albumin 4.0 g/dl (3.5-5.0) ED Course/Re-evaluation ED Course 58-year-old female who presents with acute on chronic left lower extremity swelling with associated pain, warmth, and redness. She was admitted medically stable, afebrile. Physical exam is notable for left greater than right lower cavity edema with increased erythema and warmth as noted in the physical exam. Differential diagnosis includes but is not limited to cellulitis, DVT, chronic venous stasis skin changes, hypoproteinemia, heart failure. Given patient has never had any initial workup for her long standing LE swelling we'll obtain basic labs. A left lower extremity duplex was negative for any acute DVT and therefore we will treat the patient as lower extremity cellulitis. Given it is non-purulent, we'll treat with oral cephalexin with initial dose given in the emergency department and will treat with a seven-day course. Labs are unremarkable. BNP within normal limits. Albumin within normal limits. Creatinine within normal limits. Discussed importance of primary care follow-up. Discussed return precautions should her symptoms change or worsen. Decision to Disposition Date: Nov 30, 2018 Decision to Disposition Time: 16:47 Depart Departure Latest Vital Signs Vital Signs Date Time Temp Pulse Resp B/P (MAP) Pulse Ox O2 Delivery O2 Flow Rate FiO2 11/30/18 16:06 87 91 11/30/18 16:00 127/75 (92) 11/30/18 15:10 98.3 20 Room Air Impression: Primary Impression: Cellulitis Additional Impression: Edema Condition: Improved Disposition: HOME OR SELF-CARE Referrals: NATACHA MARTINEZ APRN 5 Days New Scripts Cephalexin 500 Mg Tab (KEFLEX 500 MG TAB) 500 Mg Tablet 500 MG PO Q6H for 7 Days, #28 TAB 0 Refills Prov: JAYLIN LOUISE MD 11/30/18 Patient Instructions: Cellulitis (ED), Edema,Peripheral Problem Qualifiers JAYLIN LOUISE MD Nov 30, 2018 15:10
[2018-11-30] MEDS ORDERED: CEPHALEXIN MONO 500 MG CAP PO ONE (16:15)
[2018-11-30] MEDS ORDERED: CEPH500T7 PO (16:21)
[2018-11-30 16:30] VITALS: BP 129/73
--- NOTE | 2018-11-30 16:37 | RADIOLOGY IMAGING REPORT ---
FACILITY: PATIENT NAME: Martine Watt : 1960 MR: [id number] V: [id number] EXAM DATE: ORDERING PHYSICIAN: JAYLIN LOUISE TECHNOLOGIST: Location: Patient: Martine Watt : 1960 Visit/Account:[id number] Date of Sevice: 11/30/2018 Exam type: US VENOUS LOWER EXT LT History: swelling, eval for DVT Comparison: None. Findings: The left lower extremity veins were imaged including the left common femoral vein greater saphenous v ein superficial femoral vein popliteal vein posterior tibial vein peroneal vein and anterior tibial v ein revealing no evidence of intraluminal thrombi the veins were compressible and demonstrated augmen tation IMPRESSION: 1. No sonographic evidence DVT involving the left lower extremity veins Report Dictated By: Kaity Smith MD at 11/30/2018 4:27 PM Report E-Signed By: Kaity Smith MD at 11/30/2018 4:28 PM WSN:[id number]
== END 2018-11-30 17:00 | disposition home or self-care (01) ==
LOC: ER 15:20
DX: L03.116 Cellulitis of left lower limb (principal); R60.0 Localized edema; F17.210 Nicotine dependence, cigarettes, uncomplicated
CPT/HCPCS: 83880; 93971; 99284; A9270; 82040; 82247; 82310; 82374; 82435; 82565; 82947; 84075; 84132; 84155; 84295; 84450; 84460; 84520